=== PATIENT | female | born 1985 | race Caucasian/White ===

== ENCOUNTER 2016-06-04 11:08 | Day surgery (SDC) | payer OTHER ==
[2016-05-29 12:15] LABS: HEMATOCRIT 34.7 % (36.0-47.0); HEMOGLOBIN 11.9 g/dL (12.0-15.5); MEAN CORPUSCULAR HEMOGLOBIN 30.2 pg (27.0-33.4); MEAN CORPUSCULAR HGB CONC 34.2 g/dL (32.0-36.0); MEAN CORPUSCULAR VOLUME 88 fl (80-97); RED BLOOD COUNT 3.92 10^6/uL (3.72-5.28); RED CELL DISTRIBUTION WIDTH 12.3 % (11.5-14.0); WHITE BLOOD COUNT 5.1 10^3/uL (4.0-10.5)
[2016-05-29 12:21] LABS: APPEARANCE,URINE CLEAR; BILIRUBIN,URINE NEGATIVE (NEGATIVE); GLUCOSE, URINE NEGATIVE (NEGATIVE); KETONES,URINE NEGATIVE (NEGATIVE); LEUKOCYTE ESTERASE,URINE MODERATE (NEGATIVE); NITRITE,URINE NEGATIVE (NEGATIVE); PROTEIN,URINE NEGATIVE (NEGATIVE); URINE SPECIFIC GRAVITY 1.008; UROBILINOGEN,URINE NEGATIVE mg/dL (<2.0)
[2016-05-29 12:40] LABS: ALANINE AMINOTRANSFERASE 20 U/L (9-52); ALBUMIN 4.6 g/dL (3.5-5.0); ALKALINE PHOSPHATASE 51 U/L (38-126); ANION GAP 11 (5-19); ASPARTATE AMINO TRANSFERASE 17 U/L (14-36); BILIRUBIN,TOTAL 0.7 mg/dL (0.2-1.3); BLOOD UREA NITROGEN 8 mg/dL (7-20); CARBON DIOXIDE 26 mmol/L (22-30); CHLORIDE 103 mmol/L (98-107); CREATININE RESULT 0.66 mg/dL (0.52-1.25); GLUCOSE 85 mg/dL (75-110); POTASSIUM 4.8 mmol/L (3.6-5.0); SODIUM 140.3 mmol/L (137-145); TOTAL PROTEIN 7.2 g/dL (6.3-8.2)
[~2016-06-04 11:08] MED LIST: DEXAMETHASONE SOD PHOSPHATE INJ 4 MG/1 ML VIAL ONE; DOXYCYCLINE HYCLATE 100 MG TABLET PO PRN; GABAPENTIN 400 MG CAPSULE PO PRN; KETOROLAC TROMETHAMINE 60 MG/2 ML SDV ONE; LACTATED RINGERS 1000 ML IV PRN; LIDOCAINE 0.5% INJ-PF (5 MG/ML) 50 ML SDV SUBCUT PRN; METOCLOPRAMIDE HCL INJ/PF 10 MG/2 ML SDV ONE; ONDANSETRON HCL INJ/PF 4 MG/2 ML SDV ONE; RINGERS SOLUTION,LACTATED 1,000 ML IV PRN
[2016-06-04] MEDS ORDERED: ONDANSETRON HCL INJ/PF 4 MG/2 ML SDV ONE ×2 (13:20→15:40)
[2016-06-04] MEDS ORDERED: PROPOFOL INJ 200 MG/20 ML VIAL IV ONE (13:28)
[2016-06-04] MEDS ORDERED: MIDAZOLAM 2 MG/2 ML INJ ONE (13:28)
[2016-06-04] MEDS ORDERED: HYDROMORPHONE HCL INJ/PF 2 MG/ML AMPULE ONE (13:28)
[2016-06-04] MEDS ORDERED: ACETAMINOPHEN 100 ML IV ONE (13:28)
[2016-06-04] MEDS ORDERED: LIDOCAINE 1% INJ-PF (10 MG/ML) 30 ML SDV ONE (13:37)
[2016-06-04] MEDS ORDERED: MEPERIDINE HCL/PF INJ 25 MG/1 ML DISP.SYRIN IV PRN (14:08)
[2016-06-04] MEDS ORDERED: PROMETHAZINE HCL INJ 25 MG/1 ML VIAL IV PRN ×2 (14:08)
[2016-06-04] MEDS ORDERED: ONDANSETRON HCL INJ/PF 4 MG/2 ML SDV IV PRN ×2 (14:08→15:23)
[2016-06-04] MEDS ORDERED: OXYCODONE-ACETAMINOPHEN 5-325 MG TABLET PO PRN ×3 (14:08→15:23)
[2016-06-04] MEDS ORDERED: FENTANYL CITRATE INJ/PF 100 MCG/2 ML AMPUL IV PRN ×3 (14:08)
[2016-06-04] MEDS ORDERED: MORPHINE SULFATE 10 MG/ML INJ IV PRN (14:08)
[2016-06-04] MEDS ORDERED: DIPHENHYDRAMINE HCL 50 MG/ML VIAL IV PRN (14:08)
--- NOTE | 2016-06-04 14:44 | PDOC DISCHARGE SUMMARY ---
Discharge Summary (SDC) - Discharge Final Diagnosis: Abnormal uterine bleeding, menorrhagia Date of Surgery: 06/04/16 Discharge Date: 06/04/16 Condition: Good Forms: Post Operative Treatment or Instructions: Diagnostic Hysteroscopy and D&C Prescriptions: Acetaminophen with Codeine [Tylenol #3 Tablet] 1 each PO Q4HP PRN #30 tablet PRN Reason: Pain Scale Of 3 Ibuprofen 800 mg PO Q8H PRN #30 tablet PRN Reason: Pain Scale Of 3 Referrals: GUICHO ALEXANDRA MD [NO LOCAL MD] - (Please call the [employer] nurse at [phone]/ [phone] to schedule a follow up appt for 2-3 weeks after your surgery. If you have any other concerns you may also reach the nurse at this number. ) Discharge Diet: As Tolerated Respiratory Treatments at Home: Deep Breathing/Coughing Discharge Activity: Activity As Tolerated, Pelvic Rest - for at least one week or until bleeding stops Home Care Assistance: None Needed Report the Following to Your Physician Immediately: Vomiting, Increase in Pain, Fever over 101 Degrees, Drainage-Foul Smelling, Increased Vaginal Bleed
[2016-06-04] MEDS ORDERED: PROMETHAZINE HCL INJ 25 MG/1 ML VIAL ONE (17:04)
[2016-06-04] MEDS ORDERED: RINGERS SOLUTION,LACTATED 500 ML IV ONE (17:45)
[2016-06-04 18:25] VITALS: BP 106/61
--- NOTE | 2016-06-05 09:28 | OPERATIVE REPORT E ---
Operative Report NAME: JOSEF BRYANT : 1985 AGE: 30Y DATE OF SURGERY: 06/04/2016 ROOM: PREOPERATIVE DIAGNOSES: ABNORMAL UTERINE BLEEDING. POSTOPERATIVE DIAGNOSES: ABNORMAL UTERINE BLEEDING. OPERATION: Diagnostic hysteroscopy, D and C. SURGEON: GUICHO ALEXANDRA M.D. ANESTHESIA: MAC COMPLICATIONS: None. ESTIMATED BLOOD LOSS: 5 mL. URINE OUTPUT: Clear via in and out catheter at beginning of procedure, 300 mL. FLUID DEFICIT: 300 mL normal saline. SPECIMENS: Endometrial and endocervical curetting. FINDINGS: White normal-appearing endometrial cavity with possible endocervical polyps visualized on hysteroscopy. INDICATIONS: The risks, benefits, and alternatives of hysteroscopy were discussed with the patient, including but not limited to infection, allergic reaction, disfiguring scar, severe blood loss, injury to other organs, damage to the cervix, tubes, or ovaries or the ureter, injury to blood vessels, need for second operation or need for further surgery or repair at a later time, as well inability to get or carry a to term. Alternatives were discussed including, but not limited to, observation, medical management (which the patient declined), and other surgical approaches were discussed with the patient and she consented to the above procedure. OPERATIVE PROCEDURE: Patient was taken to the operating room where general anesthesia was undertaken. Vaginal exam was performed. The uterus was noted to be small and anteverted and mobile. She was then prepped and draped in the usual sterile fashion in dorsal lithotomy position. A red rubber catheter was used to drain the bladder. A weighted speculum was placed in the vagina. The anterior lip of the cervix was grasped and pulled into view. After the hysteroscope was set up and primed with normal saline, it as placed into the cervical os and advanced slowly but was unable to enter the uterine cavity. Therefore, a sound was used to measure the uterine cavity; found to be 8 cm. After this, dilators were used up to size #21, and then the hysteroscope was placed into the cervical os and advanced slowly into the uterine cavity under direct visualization using hydrodissection as a means for further dilation. Next, an inspection of the uterine cavity was performed revealing the above findings. Bilateral tubal ostia were visualized and several pictures were taken of the findings. The hysteroscope was then removed from the uterus, visualizing the cervical canal on the way out with the findings noted above. At this point, a gentle sharp curettage was performed and the specimen was sent to the laboratory. All instruments were removed from the uterus and vagina. After removal of the single tooth tenaculum from the cervix, the right-sided tenaculum site was noted to be bleeding so a stitch of 3-0 Vicryl was used in a figure of 8 fashion to control the bleeding. At this point, hemostasis was observed. Some oozing was noted from the cervical os. The hysteroscope was then replaced using a ring forceps to grasp the cervix, just to ensure that the cavity was not excessively bleeding. The cavity was noted to be fairly hemostatic and it was noted that the bleeding was mainly coming just from irritation of the external os of the cervix and it had quit by the time I finished the second look. Again, all instruments were removed. At the end of the procedure, the total fluid deficit was noted above. Sponge and instrument counts were correct at the end of the procedure and the patient taken to recovery in stable condition. DICTATING PHYSICIAN: GUICHO ALEXANDRA M.D. [id number] Y#: [id number] ID: [id number] JOB#: [id number] ACCT: [id number] cc:GUICHO ALEXANDRA M.D. >
== END 2016-06-04 18:15 | disposition home or self-care (01) ==
LOC: OROUT 11:08
PROVIDERS: ATTEND Obstetrics & Gynecology
PROC: 0UDB8ZX Extraction of Endometrium, Via Natural or Artificial Opening Endoscopic, Diagnostic (ICD-10-PCS; principal; 2016-06-04 13:30)
DX: N92.0 Excessive and frequent menstruation with regular cycle (principal); N93.9 Abnormal uterine and vaginal bleeding, unspecified; G43.909 Migraine, unspecified, not intractable, without status migrainosus; F41.9 Anxiety disorder, unspecified
CPT/HCPCS: 86900; 86901; 36415 ×2; 86850; 85027; 81025; 80053; 81001; 88305 ×2; 58558; J2250; J1100; J1885; J2765; J1170; J2550; J2405; J2704; J0131; J3490